=== PATIENT | female | born 1940 | race Caucasian/White ===

== ENCOUNTER 2016-09-28 11:49 | Emergency (ER) | payer OTHER, MEDICARE ==
[~2016-09-28] VITALS: Ht 144.8 cm; Wt 49.9 kg
[~2016-09-28 11:49] MED LIST: ASPIR 8181 MG PO; CELLCEPT250 MG PO; COLCHICINE0.6 M2 PO; OXYCODONE HCL5 M1 PO; PREDNICOT20 MG PO; PROGRAF1 M1 PO; VITAMIN D32000 UNIT PO
--- NOTE | 2016-09-28 11:52 | ED AMS/SEIZURE/WEAK/DIZZY ---
History of Present Illness General Chief Complaint: Altered Mental Status Stated Complaint: BIBA AMS Source: patient, EMS Exam Limitations: clinical condition Vital Signs & Intake/Output Vital Signs & Intake/Output Vital Signs Date Time Temp Pulse Resp B/P B/P Pulse O2 O2 Flow FiO2 Mean Ox Delivery Rate 09/28 1327 94 Room Air 09/28 1327 36.4 98 18 140/84 100 Room Air 09/28 1320 36.3 124 14 175/80 09/28 1300 36.3 130 20 180/79 94 Nasal 4.0L Cannula 09/28 1203 96.4 121 20 180/70 100 Nasal 2.0L Cannula Allergies Coded Allergies: NO KNOWN ALLERGIES (08/08/13) Reconcile Medications Cholecalciferol (Vitamin D3) (Vitamin D3) 2,000 UNIT CAPSULE 1 CAP PO DAILY SUPPLEMENT (Reported) Colchicine 0.6 MG TABLET 1 TAB PO DAILY UNKNOWN (Reported) Mycophenolate Mofetil 250 MG CAP 500 MG PO BID ANTI REJECTION MED (Reported) Oxycodone HCl 5 MG TABLET 1 TAB PO 4XDP PRN pain Tacrolimus (Prograf 1MG) 1 MG CAP 3 MG PO BID DERMATITIS (Reported) Triage Nurses Notes Reviewed? yes Onset: Abrupt Duration: THIS MORNING Timing: single episode today Injury Environment: home Severity: moderate, severe No Modifying Factors: none Associated Symptoms: CONFUSION HPI: This is a 76 year old female with history of transplant who presents from home for AMS and incontinency. According to her daughter she just had a follow-up with her transplant team at [place] yesterday evening was doing fine. She is compliant with her medications. She is a nonsmoker nondrinker. No change in her routine. She's been eating and drinking well. Patient is noted to have frequent falls on aspirin. Today at home she was altered and the aide called from home. She arrives to the ER incontinent of stool and urine. Upon arrival she had a 2 minute tonic-clonic seizure. No history of seizures reported. Past History Travel History Traveled to [place] past 21 day No Medical History Any Pertinent Medical History? see below for history Hepatic: LIVER TRANSPLANT, ON IMMUNOSUPPRESSANTS Musculoskeletal: LEFT SHOULDER SURGERY Surgical History Surgical History: LIVER TRANSPLANT Psychosocial History Who do you live with Son What is your primary language Nigerien Family History Hx Contributory? No Review of Systems Review of Systems Constitutional: Reports: see HPI (AMS). Physical Exam Physical Exam General Appearance: well developed/nourished, moderate distress, severe distress Head: atraumatic Eyes: Bilateral: PERRL. Ears, Nose, Throat: normal pharynx Neck: supple, full range of motion Respiratory: normal breath sounds, chest non-tender, no respiratory distress Cardiovascular: regular rate/rhythm Gastrointestinal: soft, DISTENDED, HYPOACTIVE BOWEL SOUNDS NO REBOUND OR GUARDING Neurologic/Psych: POST ICTAL Skin: intact, normal color, warm/dry Core Measures ACS in differential dx? No CVA/TIA Diagnosis: No Severe Sepsis Present: No Septic Shock Present: No Progress Differential Diagnosis: CVA/stroke, drug intoxication, encephalitis, electrolyte imbalance, meningitis, pneumonia, sepsis, seizure disorder Plan of Care: Orders Procedure Date/time Status LACTIC ACID 09/28 1453 Active ARTERIAL BLOOD GAS (GEN) 09/28 1321 Complete Add-on Test (ER Only) 09/28 1306 Active TROPONIN LEVEL 09/28 1208 Complete Fonseca, Insertion/Removal/Asses 09/28 1201 Active URINE DRUGS OF ABUSE 09/28 1201 Complete ARTERIAL BLOOD GAS (GEN) 09/28 1200 Complete EKG 09/28 1200 Active BLOOD CULTURE 09/28 1153 Active URINALYSIS 09/28 1153 Complete PARTIAL THROMBOPLASTIN TIME 09/28 1153 Complete PROTHROMBIN TIME 09/28 1153 Complete AMMONIA 09/28 1153 Complete MAGNESIUM 09/28 1153 Complete LACTIC ACID 09/28 1153 Complete ETHANOL 09/28 1153 Complete COMPREHENSIVE METABOLIC PANEL 09/28 1153 Complete CBC WITHOUT DIFFERENTIAL 09/28 1153 Complete Current Medications Sig/Bart Start time Last Medication Dose Stop Time Status Admin Sodium Chloride 1,000 ML BOLUS ONE 09/28 1330 AC 09/28 (Normal Saline 0.9%) 09/28 1429 1341 Laboratory Tests 09/28/16 1255: Urine Opiates Screen < 100.00, Methadone Screen < 40, Barbiturate Screen < 60, Ur Phencyclidine Scrn < 6.00, Amphetamines Screen < 100, U Benzodiazepines Scrn < 85, Urine Cocaine Screen < 50, Urine Cannabis Screen < 5.00, Urinalysis LIGHT H, Urine Color YEL, Urine Clarity HAZY H, Urine pH 6.0, Ur Specific [place] 1.025, Urine Protein 100 H, Urine Ketones NEG, Urine Nitrite NEG, Urine Bilirubin NEG, Urine Urobilinogen 0.2, Ur Leukocyte Esterase NEG, Ur Microscopic SEDIMENT EXAMINED, Urine RBC 5-10 H, Urine WBC 1-3 H, Ur Epithelial Cells MOD H, Urine Bacteria FEW H, Granular Casts 3-5 H, Urine Hemoglobin SMALL H, Urine Glucose 250 H 09/28/16 1210: pH 7.14 *L, pCO2 75 *H, pO2 92, HCO3 25, ABG O2 Sat (Measured) 93.0 L, Carboxyhemoglobin 0.5 L, O2 Concentration % 3L, O2 Delivery Method N/C, Phlebotomy Draw Site LEFT RADIAL 09/28/16 1210: pH 7.01 *L, pCO2 49 H, pO2 144 H, HCO3 14 L, ABG O2 Sat (Measured) 97.0, Carboxyhemoglobin 0.9 L, O2 Concentration % 3L, O2 Delivery Method N/C, Phlebotomy Draw Site LEFT RADIAL 09/28/16 1208: Anion Gap 23 H, Estimated GFR > 60, BUN/Creatinine Ratio 11.1, Glucose 253 H, Lactic Acid 12.9 H, Calcium 9.3, Magnesium 1.9, Total Bilirubin 0.7, AST 46 H, ALT 32, Alkaline Phosphatase 91, Ammonia 220 H, Troponin I < 0.01, Total Protein 7.2, Albumin 4.6, Globulin 2.6, Albumin/Globulin Ratio 1.8, PT 11.1, INR 1.06, APTT 25, CBC w Diff NO MAN DIFF REQ, RBC 5.10, MCV 90.2, MCH 29.3, RDW 14.7 H, MPV 8.1, Gran % 45.9, Lymphocytes % 47.4, Monocytes % 5.6, Eosinophils % 0.7, Basophils % 0.4, Absolute Granulocytes 7.3 H, Absolute Lymphocytes 7.5 H, Absolute Monocytes 0.9 H, Absolute Eosinophils 0.1, Absolute Basophils 0.1, PUBS MCHC 32.5 L, Serum Alcohol < 10.0 Microbiology 09/28 1214 BLOOD: Blood Culture - RECD 09/29 1207 BLOOD: Blood Culture - RECD IV ATIVAN 2 MG GIVEN FO RSEIZURE. LABS, CULTURES, AMMONIA LEVEL, CT SCAN ORDERED. ABG. 2 AMPS BICARB GIVEN. PATIENT PLACED ON BIPAP. INTACT GAG REFLEX, REMAINS POST ICTAL. IV KEPPRA LOADED. HEAD CT NON ACUTE. D/W DR YI - OUT OF TOWN. WILL DISCUSS WITH [facility] TE[facility]. DECISION MADE TO INTUBATE THE PATIENT PRIOR TO TRANSPORT. (DANIEL SOTO,JULIAN) Diagnostic Imaging: Viewed by Me: Radiology Read, CT Scan. Discussed w/RAD: Radiology Read, CT Scan. Radiology Impression: PATIENT: DRE BARFIELD PRESENT AGE: 76 PATIENT ACCOUNT NO: [id number] : 42 LOCATION: [facility] ORDERING PHYSICIAN: JULIAN SANCHEZ MD SERVICE DATE: 09/28/16 EXAM TYPE: CAT - CT HEAD WO IV CONTRAST EXAMINATION: CT HEAD WITHOUT CONTRAST CLINICAL INFORMATION: 76-year-old female with altered mental status, seizure. COMPARISON: CT of the head done on 12/17/2015. TECHNIQUE: Contiguous axial imaging was performed from the skull base to vertex without intravenous administration of contrast. DLP: 529.16 mGy-cm FINDINGS: There is no evidence of acute intracranial hemorrhage or territorial infarction. No abnormal mass effect or midline shift is seen. Duran to white matter differentiation is well preserved. No extra-axial fluid collections are identified. The ventricles are normal in size. 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 Bilateral basal ganglia calcifications are present. The osseous structures and soft tissues are normal. Bilateral mastoid air cells appear opaque, unchanged. The visualized paranasal sinuses appear well aerated and are unremarkable, unchanged. IMPRESSION: No acute intracranial pathology. No significant change since 12/17/2015. DICTATED BY: YARELI GE MD DATE/TIME DICTATED:09/28/161256 RN SUPPLEMENTAL:CATHI DATE/TIME TRANSCRIBED:1256 CONFIDENTIAL, DO NOT COPY WITHOUT APPROPRIATE AUTHORIZATION. < Electronically signed in Other Vendor System> SIGNED BY: YARELI GE MD 09/28/16 1306 Initial ED EKG: NSR Departure Departure Time of Disposition: 1608 Disposition: OTHER [facility] (ACUTE) Condition: Guarded Clinical Impression Primary Impression: Seizure Secondary Impressions: Hepatic encephalopathy, Hypokalemia, Lactic acidosis Referrals: CAITLYN YI MD (PCP/Family) Departure Forms: Customer Survey General Discharge Information Procedures Intubation Time of Intubation: 1450 Intubation Method: orotracheal Tube Size (cm): 7.0 Medications: succinylcholine, ETOMIDATE Breath Sounds After Intubation: equal Intubation Complications: no complications Post Intubation Xray? Yes Critical Care Note Critical Care Note Critical Care Time: 75-104 min
[2016-09-28 12:20] LABS: ABSOLUTE BASOPHIL COUNT 0.1 /CUMM (0.0-0.2); ABSOLUTE EOSINOPHIL COUNT 0.1 /CUMM (0.0-0.7); ABSOLUTE GRANULOCYTE CT 7.3 /CUMM (1.4-6.5); ABSOLUTE LYMPH COUNT 7.5 /CUMM (1.2-3.4); ABSOLUTE MONOCYTE COUNT 0.9 /CUMM (0.10-0.60); BASOPHIL % 0.4 % (0.0-2.0); EOSINOPHIL % 0.7 % (0-5); MEAN CORPUSCULAR HGB 29.3 PG (27.0-31.0); MEAN CORPUSCULAR HGB CONC 32.5 G/DL (33.0-37.0); MEAN CORPUSCULAR VOLUME 90.2 FL (81.0-99.0); MEAN PLATELET VOLUME 8.1 FL (7.4-10.4); RBC DISTRIBUTION WIDTH 14.7 % (11.5-14.5); WHITE BLOOD CELL COUNT 15.8 /CUMM (4.8-10.8)
[2016-09-28 12:42] LABS: PT 11.1 SEC (9.4-12.5); PTT 25 SEC (25-37)
[2016-09-28 12:52] LABS: PLATELET COUNT 281 /CUMM (130-400)
[2016-09-28 12:53] LABS: GRANULOCYTE % 45.9 % (42.2-75.2)
--- NOTE | 2016-09-28 13:06 | CT SCAN REPORT ---
EXAMINATION: CT HEAD WITHOUT CONTRAST CLINICAL INFORMATION: 76-year-old female with altered mental status, seizure. COMPARISON: CT of the head done on 12/17/2015. TECHNIQUE: Contiguous axial imaging was performed from the skull base to vertex without intravenous administration of contrast. DLP: 529.16 mGy-cm FINDINGS: There is no evidence of acute intracranial hemorrhage or territorial infarction. No abnormal mass effect or midline shift is seen. Duran to white matter differentiation is well preserved. No extra-axial fluid collections are identified. The ventricles are normal in size. 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 Bilateral basal ganglia calcifications are present. The osseous structures and soft tissues are normal. Bilateral mastoid air cells appear opaque, unchanged. The visualized paranasal sinuses appear well aerated and are unremarkable, unchanged. IMPRESSION: No acute intracranial pathology. No significant change since 12/17/2015.
--- NOTE | 2016-09-28 13:15 | CT SCAN REPORT ---
EXAMINATION: CT CHEST, ABDOMEN AND PELVIS WITHOUT CONTRAST CLINICAL INFORMATION: LIVER TRANSPLANT, AMS, NOT ON MEDS. COMPARISON: Chest CT 12/17/2015. TECHNIQUE: Multidetector volumetric imaging was performed from the thoracic inlet through the pubic symphysis following the uneventful administration of: Oral contrast: No Intravenous contrast: No Sagittal and coronal reformatted images were obtained on the technologist workstation. FINDINGS: CHEST: LUNG: There is left greater than right posterior dependent groundglass opacity within the left upper lobe and right lower lobe, most likely atelectasis. There is bronchial wall thickening and bronchiectasis to the left lower lobe. The left lower lobe is hyperlucent suggesting air trapping. No dense focal consolidation or mass seen however. MEDIASTINUM: There is streak artifact bilateral shoulder arthroplasties which limits evaluation of the mediastinum. No pathologically enlarged hilar or mediastinal lymphadenopathy. Normal heart size. The ascending aorta is ectatic, 3.6 cm without any new isn't seen.. PERICARDIUM/PLEURA: No significant effusion. No pleural mass or thickening. CHEST WALL/AXILLA: Unremarkable. ABDOMEN/PELVIS: LIVER, GALLBLADDER, AND BILIARY TREE: Lack of intravenous contrast limits evaluation for focal lesions, but none are seen. No biliary ductal dilatation. Gallbladder surgically absent. PANCREAS: No pancreatic mass or peripancreatic inflammatory changes. SPLEEN: Normal size. No focal lesion. ADRENAL GLANDS: Normal; no mass. KIDNEYS AND URETERS: There is atrophy of the lower pole of the right kidney without 1.1 cm renal cortical calcification. No left renal calculi. No hydronephrosis. GASTROINTESTINAL TRACT: Stomach is moderately distended with ingested material. The small bowel is nondilated. No colonic wall thickening or pericolonic inflammatory changes to suggest colitis or diverticulitis. Normal appendix. The rectum is low lying suggesting pelvic floor weakness. ABDOMINAL WALL: Severely attenuated anterior abdominal wall small fat-containing umbilical hernia. LYMPHOVASCULAR STRUCTURES: No lymphadenopathy. The aorta is unremarkable. BLADDER: There is a Fonseca catheter looped several times within a decompressed urinary bladder. PELVIC VISCERA: Diminutive postmenopausal uterus. No adnexal mass. OSSEOUS STRUCTURES: No acute or suspicious osseous abnormality. Multilevel degenerative changes of the thoracic spine there is a Schmorl's node deformity of the inferior endplate of T12. Mild compression deformity of the superior endplate of T11. The appearance is unchanged since 12/17/2015. IMPRESSION: No acute abnormality seen. Bronchial wall thickening and bronchiectasis with suspected air trapping in the left lower lobe. Likely posterior dependent atelectasis in the left upper and right lower lobes.
--- NOTE | 2016-09-28 15:55 | RADIOLOGY REPORT ---
EXAMINATION: XR PORTABLE CHEST CLINICAL INFORMATION: Placement of intubation tube COMPARISON: Chest CT earlier the same day TECHNIQUE: Portable AP view of the chest was obtained. FINDINGS: New endotracheal tube seen with tip 3.2 cm above the kandy. There is also been placement of an enteric tube which loops in the stomach. There is diffuse hazy opacity within the left upper lobe and right lower lobe, similar to the CT scan. Medial bilateral lower lobe bronchial wall thickening and linear atelectasis. No pleural effusion or pneumothorax. Normal heart size. Bilateral reverse total shoulder arthroplasties. IMPRESSION: New endotracheal tube seen with tip 3.2 cm above the kandy.
[2016-09-28 16:24] VITALS: BP 142/84
== END 2016-09-28 16:26 | disposition short-term general hospital (02) ==
LOC: ERH 11:49
PROVIDERS: Emergency Medicine
DX: R56.9 Unspecified convulsions (principal); K72.90 Hepatic failure, unspecified without coma; E87.6 Hypokalemia; E87.2 Acidosis
CPT/HCPCS: 1288; 1344; 1387; 74176; 80307; 81001; 87040; 93005; 93010; 94799; 96374; 96375; 96376; 99291; G0480; J1953

== ENCOUNTER 2016-10-12 11:39 | Emergency (ER) | payer OTHER, MEDICARE ==
[~2016-10-12] VITALS: Ht 152.4 cm; Wt 49.9 kg
--- NOTE | 2016-10-12 13:38 | ED DYSPNEA/ASTHMA COMPLAINT ---
History of Present Illness General Chief Complaint: General Adult Stated Complaint: REQ WESLEYAL S/P CHOKING ON MORNING MEDS Source: patient, family, old records Exam Limitations: no limitations Vital Signs & Intake/Output Vital Signs & Intake/Output Vital Signs Date Time Temp Pulse Resp B/P B/P Pulse O2 O2 Flow FiO2 Mean Ox Delivery Rate 10/12 1351 97.0 10/12 1142 97.0 67 18 136/83 97 Room Air Allergies Coded Allergies: NO KNOWN ALLERGIES (08/08/13) Reconcile Medications Cholecalciferol (Vitamin D3) (Vitamin D3) 2,000 UNIT CAPSULE 1 CAP PO DAILY SUPPLEMENT (Reported) Colchicine 0.6 MG TABLET 1 TAB PO DAILY UNKNOWN (Reported) Mycophenolate Mofetil (Cellcept) 250 MG CAPSULE 2 CAP PO BID ANTI REJECTION MED (Reported) Tacrolimus (Prograf) 1 MG CAPSULE 3 CAP PO BID DERMATITIS (Reported) Triage Note: 76 YEAR OLD FEMALE TO ER WITH HER DAUGHTER WHO STTAES THAT PT CHOKED ON HER PILLS AND NURSE DID THE HEIMLICH ON HER. PT VOMITTED UP ANY SIPS OF WATER AFTER THAT, O2 SAT 96 % RA.DAUGHTER STATES THAT PT HAS NOT HAD ANYTHING TO DRINK SINCE .PT STATES THAT SHE FEELS LIKE SOMETHING IS STUCK THAT Triage Nurses Notes Reviewed? yes Onset: Abrupt Duration: FEW HOURS PRIOR TO ARRIVAL Timing: single episode today Severity: mild, moderate Activities at Onset: CHOKING ON PILLS Modifying Factors: Worsens With: other (SWALLOWING). Associated Symptoms: PAINFUL SWALLOWING HPI: 76 year old female s/p choking episode on her pills this morning presents for evaluation with her daughter. According to family members she was choking while swallowing her pills with water this morning. The visiting nurse performed the Heimlich manuevre on her and since then she has had some chest pain and the feeling like something is stuck in her throat. No difficulty breathing. Mild amount of painful swallowing since then. No shortness of breath. Past History Travel History Traveled to [place] past 21 day No Medical History Any Pertinent Medical History? see below for history Neurological: NONE EENT: NONE Cardiovascular: NONE Respiratory: NONE Gastrointestinal: NONE Hepatic: hepatitis C, LIVER TRANSPLANT, ON IMMUNOSUPPRESSANTS Renal: NONE Musculoskeletal: LEFT SHOULDER SURGERY Psychiatric: NONE Endocrine: NONE Blood Disorders: NONE Cancer(s): NONE Surgical History Surgical History: LIVER TRANSPLANT Psychosocial History Who do you live with Son What is your primary language Yakut Tobacco Use: Never used ETOH Use: denies use Illicit Drug Use: denies illicit drug use Family History Hx Contributory? No Review of Systems Review of Systems Constitutional: Denies: chills, fever. EENTM: Reports: throat pain. Respiratory: Denies: short of breath. Cardiovascular: Reports: chest pain. GI: Denies: abdominal pain, diarrhea, vomiting. Genitourinary: Denies: discharge, dysuria. Musculoskeletal: Reports: no symptoms. Skin: Reports: no symptoms. Neurological/Psychological: Reports: no symptoms. Hematologic/Endocrine: Denies: bruising, bleeding, polyuria, polydipsia. Immunologic/Allergic: Denies: splenectomy. All Other Systems: Reviewed and Negative Physical Exam Physical Exam General Appearance: alert, awake, anxious, mild distress, thin Head: atraumatic, normal appearance Eyes: Bilateral: normal appearance, PERRL, EOMI. Ears, Nose, Throat: normal pharynx, hearing grossly normal Neck: normal inspection, supple, full range of motion, no stridor Respiratory: normal breath sounds, chest non-tender, no respiratory distress, NO WHEEZING Cardiovascular: regular rate/rhythm Peripheral Pulses: 2+ radial (R), 2+ radial (L) Gastrointestinal: normal bowel sounds, soft, non-tender Extremities: normal inspection, normal capillary refill, normal range of motion, no edema Neurologic/Psych: no motor/sensory deficits, awake, alert, oriented x 3 Skin: intact, normal color, warm/dry Core Measures ACS in differential dx? No Severe Sepsis Present: No Septic Shock Present: No Progress Differential Diagnosis: pain after heimlich, pill esophagitis, tracheal foreign body Plan of Care: CXR, LIQUID TYLENOL ORDERED. CXR NEGATIVE. PATIENT ABLE TO SWALLOW WATER WITHOUT ANY DIFFICULTY. Diagnostic Imaging: Viewed by Me: Radiology Read. Discussed w/RAD: Radiology Read. Initial ED EKG: none Comments: PATIENT: DRE BARFIELD PRESENT AGE: 76 PATIENT ACCOUNT NO: [id number] : 42 LOCATION: [facility] ORDERING PHYSICIAN: JULIAN SANCHEZ MD SERVICE DATE: 10/12/166474 EXAM TYPE: RAD - XRY-CHEST XRAY, PA AND LATERAL EXAMINATION: XR CHEST CLINICAL INFORMATION: Choked on medications. Heimlich maneuver. Rule out aspiration/rib fracture COMPARISON: 09/28/2016 TECHNIQUE: PA and lateral views of the chest FINDINGS: An electronic device overlies the left chest wall anteriorly. Cardiac silhouette is at the upper limits of normal in size. Minimal atelectasis in the lung bases. Pulmonary vasculature is normal. No consolidation, pneumothorax, or pleural effusion. Pulmonary vasculature is normal. No rib fractures are identified on these images. There is mild degenerative disc disease in the thoracic spine. Bones are osteopenic. Cholecystectomy clips are present in the right upper quadrant. 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 IMPRESSION: No acute pulmonary findings. No rib fractures are identified. DICTATED BY: OVIDIO MARINELLI MD DATE/TIME DICTATED:10/12/161409 ACID REGENERATOR:CATHI DATE/TIME TRANSCRIBED:10/12/161409 CONFIDENTIAL, DO NOT COPY WITHOUT APPROPRIATE AUTHORIZATION. <Electronically signed in Other Vendor System> SIGNED BY: OVIDIO MARINELLI MD 10/12/16 1418 Departure Departure Time of Disposition: 1427 Disposition: HOME OR SELF CARE Condition: Stable Clinical Impression Primary Impression: Choking episode Referrals: KASSIDY SOTO,CAITLYN Red (PCP/Family) Additional Instructions: Liquid/very soft diet for the rest of the day today. Please use the pill legal compliance officer as discussed. Follow up with her doctor in the office as needed. If you start to develop fever, chills, shortness of breath or productive cough please be reevaluated. Departure Forms: Customer Survey General Discharge Information Critical Care Note Critical Care Note Critical Care Time: non-applicable
--- NOTE | 2016-10-12 14:18 | RADIOLOGY REPORT ---
EXAMINATION: XR CHEST CLINICAL INFORMATION: Choked on medications. Heimlich maneuver. Rule out aspiration/rib fracture COMPARISON: 09/28/2016 TECHNIQUE: PA and lateral views of the chest FINDINGS: An electronic device overlies the left chest wall anteriorly. Cardiac silhouette is at the upper limits of normal in size. Minimal atelectasis in the lung bases. Pulmonary vasculature is normal. No consolidation, pneumothorax, or pleural effusion. Pulmonary vasculature is normal. No rib fractures are identified on these images. There is mild degenerative disc disease in the thoracic spine. Bones are osteopenic. Cholecystectomy clips are present in the right upper quadrant. 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 IMPRESSION: No acute pulmonary findings. No rib fractures are identified.
[2016-10-12 14:25] VITALS: BP 132/78
== END 2016-10-12 14:43 ==
LOC: ERH 11:39
DX: T17.298A Other foreign object in pharynx causing other injury, initial encounter (principal); R07.9 Chest pain, unspecified